=== PATIENT | male | born 1970 | race Two or more races ===

== ENCOUNTER → 2025-03-23 | Outpatient (BNVA) | payer MEDICAID, SELFPAY | END | disposition home or self-care (01) | PROVIDERS: PCP Family Medicine; Referring Provider Family Medicine; Visit Provider Urology | DX: N13.2 Hydronephrosis with renal and ureteral calculous obstruction (principal); N50.819 Testicular pain, unspecified; K64.9 Unspecified hemorrhoids | CPT/HCPCS: 81003; 99202; G0463 ==